=== PATIENT | male | born 1990 | race Native Hawaiian/Other Pacific Islander ===

== ENCOUNTER 2016-10-16 19:56 | Emergency (ER) | payer OTHER ==
--- NOTE | 2016-10-16 21:07 | ED ORDER SUMMARY ---
..... Patient: NIGEL DUBOIS OrderSheet [facility] VisitID: [id number] [address] [place] [address] 26y, M Registration Date/Time: 10/16/2016 ORDER SHEET Weight: 92.9 kg (stated) Allergies: No Known Drug Allergy GENERAL ORDERS: CBC w Diff Urgent (20:10/16/2016 EKoroleva P.A.-C) (Ack 20:13 LTapper) (20:21 HOShaughnessy R.N.) BMP Urgent (20:10/16/2016 EKoroleva P.A.-C) (Ack 20:13 LTapper) (20:21 HOShaughnessy R.N.) PCT (Procalcitonin) Urgent (20:10/16/2016 EKoroleva P.A.-C) (Ack 20:13 LTapper) (20:21 HOShaughnessy R.N.) Culture, Strep Screen Urgent (20:10/16/2016 EKoroleva P.A.-C) (Ack 20:13 LTapper) (20:21 HOShaughnessy R.N.) Monoscreen Urgent (20:10/16/2016 EKoroleva P.A.-C) (Ack 20:13 LTapper) (20:21 HOShaughnessy R.N.) NPO (20:10/16/2016 EKoroleva P.A.-C) (20:21 HOShaughnessy R.N.) MEDICATION ORDERS: Tylenol PO 1,000 mg (NOW) (20:10/16/2016 EKoroleva P.A.-C) (Ack 20:22 HOShaughnessy R.N.) (20:50 HOShaughnessy R.N.) Amoxicillin PO 500 mg (NOW) (21:10/16/2016 EKoroleva P.A.-C) (21:16 HOShaughnessy R.N.) IV FLUIDS: Solu-MEDROL IV 125 mg (NOW) (20:10/16/2016 EKoroleva P.A.-C) (20:21 Zenaida RizoN.) Toradol IV 30 mg (NOW) (20:07 10/16/2016 Shonda Bowie) (20:20 Zenaida Maloney.N.) IV NS : initial bolus 1000 mL (1000 mL/hr), then 1000 mL/hr for X1 (NOW); Viral (20:07 10/16/2016 Shonda Bowie) (20:20 Zenaida R.N.) ORDER SHEET NOTES: [Electronically signed by Molina Membreno R.N. (21:39 10/16/2016)] [Electronically signed by Chula Nascimento P.A.-C (21:44 10/16/2016)] [Electronically locked/signed by Molina Membreno R.N. (21:39 10/16/2016)]
--- NOTE | 2016-10-16 21:07 | ED NURSING NOTES ---
Clinical Report - Nurses [facility] [address] [place] [address] 10/16/2016 19:59 Patient: NIGEL DUBOIS TRIAGE Triage time 2004 PM. Acuity: LEVEL 4. Chief Complaint: SORE THROAT. Alert. No acute distress. --20:06 Molina Membreno R.N. 20:04 10/16/16. BP: 150/82 taken on the left arm, via an automated monitor, while lying. HR: 111. RR: 20. O2 saturation: 99%. Temp: 99.2 F (oral). Pain level now: 05/13. --20:06 Molina Membreno R.N. Weight: 92.9 kg stated. Height/Length: 66 inches Per Patient. BMI: 33.1. --20:06 Molina Membreno R.N. Medications None. --20:06 Molina Membreno R.N. Allergies No Known Drug Allergy. --20:05 Molina Membreno R.N. History Arrived by private vehicle. Historian: patient. Accompanied by family. This started today. This is a new problem. (12pm). Reports enlarged lymph nodes. Treatment [employer]OUNT[employer]ING [employer]IC: Took ibuprofen. PAST MEDICAL HX: Immunizations: up-to-date. SOCIAL HX: Former smoker, end date 06/2016. Alcohol use. (no). History of drug use. (no). --20:06 Molina Membreno R.N. PROBLEMS: Neck Pain. Back Injury. Chronic Back Pain. Back Pain. --20:06 Molina Membreno R.N. ADDITIONAL SURGERIES: Dental Surgery. --20:06 Molina Membreno R.N. Interventions ID band on patient. To treatment room. --20:06 Molina Membreno R.N. PHYSICAL ASSESSMENT Ambulatory to room. GENERAL / NEURO / PSYCH: Alert. Oriented X 4. Appears in no acute distress. HEENT: Pupils equal, round and reactive to light. Trouble handling secretions. Mouth within normal limits upon inspection. No dental injury noted. Mucous membranes are pink. RESPIRATORY: Respirations not labored. CVS: Capillary refill less than 2 seconds. SKIN: Skin is warm and dry. Normal skin turgor. --20:07 Molina Membreno R.N. NURSING PROGRESS NOTES Call light placed in reach. Side rails up x 2. Bed placed in lowest position. Brakes of bed on. --20:07 Molina Membreno R.N. 20:20 10/16/2016 Site #1 started via IV in the left antecubital space with an 18g angiocath; one attempt. Blood drawn: rainbow set. Labeled in the presence of the patient and sent to the lab. Saline lock flushed with 10 mL saline. --20:20 Molina Membreno R.N. 20:20 10/16/2016 Started IV Fluids IV NS (Saline); bolus of 1000 mL wide open via site #1. Allergies verified and confirmed 5 rights. IV patency established. IV site checked: no pain, redness, or swelling. IV flushed thoroughly pre- and post-medication administration. --20:20 Molina Membreno R.N. 20:20 10/16/2016 Toradol IVP 30 mg given over 2 minute(s) via site #1. Allergies verified and confirmed 5 rights. IV patency established. IV site checked: no pain, redness, or swelling. IV flushed thoroughly pre- and post-medication administration. IVP given by RN. --20:20 Molina Membreno R.N. 20:21 10/16/2016 SOLU-MEDROL (MethylPREDNISolone Sodium Succ) IVP 125 mg given over 2 minute(s) via site #1. Allergies verified and confirmed 5 rights. IV patency established. IV site checked: no pain, redness, or swelling. IV flushed thoroughly pre- and post-medication administration. IVP given by RN. --20:21 Molina Membreno R.N. 20:50 10/16/2016 Tylenol (Acetaminophen) PO Capsules 1000 mg given. Allergies verified and confirmed 5 rights. --20:50 Molina Membreno R.N. 20:50 10/16/16. BP: 119/71. HR: 95. RR: 16. O2 saturation: 99%. Temp: 98.9 F (oral). Pain level now: 02/10. --20:50 Molina Membreno R.N. 21:16 10/16/2016 Amoxicillin PO Capsules 500 mg given. Allergies verified and confirmed 5 rights. --21:16 Molina Membreno R.N. DISPOSITION / DISCHARGE 21:20 10/16/2016 IV Fluids IV NS Discontinued: bag #1 STOPPED. Total amount infused: 1000 mL. IV patency established. IV site checked: no pain, redness, or swelling. IV flushed thoroughly. --21:20 Molina Membreno R.N. 21:21 10/16/2016 Site #1 removed upon discharge. --21:21 Molina Membreno R.N. Condition at departure: improved. The goals identified in the patient's plan of care were met. Reviewed medication(s) side effects, precautions, dosing and course information. Prescription(s) given to the patient. Reviewed fever care instructions. Reviewed referral to a primary care physician. Patient verbalized understanding. Written instructions provided in Kinyarwanda. The patient was discharged home and unaccompanied at time of discharge. He left the Emergency Department ambulatory and via private vehicle. Patient driving. FALL RISK ASSESSMENT: Fall risk assessment completed. No fall risk identified. --21:22 Molina Membreno R.N. 21:20 10/16/16. BP: 114/85 taken on the right arm, via an automated monitor, while lying. HR: 106. RR: 16. O2 saturation: 98% on room air. Temp: 98.6 F (oral). Pain level now: 02/10. --21:22 Molina Membreno R.N. Departure time: 2121 PM. --21:22 Molina Membreno R.N. Locked/Released at 10/16/2016 21:40 by Molina Membreno R.N.
--- NOTE | 2016-10-16 21:07 | ED CLINICAL REPORT ---
Clinical Report - Physicians/Mid Levels [facility] [address] [place] [address] 10/16/2016 19:59 [id number] Time Seen: 20:08 Oct 16 2016. Arrived- By private vehicle. Historian- patient. HISTORY OF PRESENT ILLNESS Chief Complaint: SORE THROAT. This started just prior to arrival and is still present. The patient has had a sore throat. No mouth sores, nasal discharge or congestion or toothache. No swollen jaw or face. (Sore throat worsening over the last 12 hours. No fevers or chills no cough. No sick contacts. Noarthralgia. No rash. No new substances. No history of allergies.). Similar symptoms previously: None. Recent medical care: Not recently seen/assessed. REVIEW OF SYSTEMS No fever, cough, chest pain, nausea or abdominal pain. No headache. All systems otherwise negative, except as recorded above. SOCIAL HISTORY Former smoker. No alcohol use or drug use. ADDITIONAL NOTES The nursing notes have been reviewed. PHYSICAL EXAM Vital Signs: 10/16/2016 20:04 BP: 150/82. HR: 111. RR: 20. O2 saturation: 99%. Temp: 99.2 F. Pain level now: 9/10. Appearance: Alert. Head: Normal external inspection. ENT: Ears normal. Nose normal. Pharyngeal erythema. Pharynx normal. Lips normal. No trismus present. Uvula midline. No peritonsillar mass, muffled or hoarse voice or drooling. The mucous membranes are not dry. Neck: Lymphadenopathy present. Thyroid normal. No meningeal signs. CVS: Normal heart rate and rhythm. Heart sounds normal. Respiratory: No respiratory distress. Breath sounds normal. Abdomen: Soft. LABS, X-RAYS, AND EKG Laboratory Tests: Monoscreen: (CHARLOTTE: 10/16/2016 20:15) ( MsgRcvd 10/16/2016 20:57) Final results Test Result Flag Units (Reference) MONOSCREEN NEGATIVE (NEGATIVE) CBC w Diff: (CHARLOTTE: 10/16/2016 20:15) ( MsgRcvd 10/16/2016 20:45) Final results Test Result Flag Units (Reference) WHITE BLOOD COUNT 8.4 K/uL (4.5-11.5) RED BLOOD COUNT 4.95 M/uL (4.50-5.90) HEMOGLOBIN 15.7 gm/dL (13.5-17.5) HEMATOCRIT 46.1 % (41.0-53.0) MEAN CELL VOLUME 93 fL (80-100) MEAN CORPUSCULAR HGB 32 pg (26-34) MEAN CORPUSCULAR HGB CONC 34 g/dL (31-37) RED CELL DISTRIBUTION WIDTH 13.6 % (11.6-14.8) PLATELET COUNT 307 K/uL (150-400) NEUTROPHIL % 78.7 H % (50-75) LYMPH % 11.7 L % (25-40) MONO % 6.9 % (3-14) EOSINOPHIL % 2.4 % (0-4) BASOPHIL % 0.3 % (0-2) [id number]: (CHARLOTTE: 10/16/2016 20:15) ( MsgRcvd 10/16/2016 21:14) Final results Test Result Flag Units (Reference) PROCALCITONIN <0.5 ng/mL (0-0.5) PCT Concentration: Interpretation : Risk/option for action PCT <=0.5 ng/mL : Systemic : Low risk forinfection(sepsis): progression to severeis not likely. : systemic infection.Local bacterial : CAUTION-PCT levelsinfection is : below 0.5 ng/mL do notpossible. : exclude an infection,because localizedinfections (withoutsystemic signs) may beassociated with suchlow levels. If PCT ismeasured very earlyafter a bacterialchallenge (usually <6hours), these valuesmay still be low. Inthis case PCT shouldbe re-assessed 6-24hours later. PCT >0.5 and : Systemic infection: Moderate risk for<= 2 ng/mL : (sepsis) is : progression to severepossible, but : systemic infection.other conditions : The patient should beare known to : closely monitoredelevate PCT. : both clinically andby re-assessing PCTwithin 6-24 hours. PCT > 2 ng/mL : Systemic infection: High risk for(sepsis) is likely: progression to severeunless other : systemic infection.causes are known. : PCT >= 10 ng/mL : Important systemic: High likelihood ofinflammatory : severe sepsis orresponse, almost : septic shock.exclusively due to:severe bacterial :sepsis or septic :shock. : BMP: (CHARLOTTE: 10/16/2016 20:15) ( MsgRcvd 10/16/2016 20:39) Final results Test Result Flag Units (Reference) GLUCOSE 96 mg/dL (70-110) BUN 9 mg/dL (7-18) CREATININE 0.7 mg/dL (0.6-1.3) Estimated GFR >60 mL/min Estimated GFR- >60 mL/min Note: Persistent reduction over 3 months in eGFR<60 mL/min/1.73 m2 defines CKD. Patients with eGFR values>=60 mL/min/1.73 m2 may also have CKD if evidence ofpersistent proteinuria. Additional information may be foundat www.kidney.org. SODIUM 138 mmol/L (136-145) POTASSIUM 3.9 mmol/L (3.5-5.1) CHLORIDE 101 mmol/L (98-107) CARBON DIOXIDE 26 mmol/L (21-32) CALCIUM 9.2 mg/dL (8.5-10.1) Culture, Strep Screen: (CHARLOTTE: 10/16/2016 20:00) ( MsgRcvd 10/16/2016 20:57) Final results Test Result Flag Units (Reference) RAPID STREP SCREEN - THROAT DATE: 10/16/16 NEGATIVE SCREEN: RAPID STREP SCREEN NEGATIVE; CONFIRMATION TO FOLLOW . PROGRESS AND PROCEDURES Course of Care: Patient is afebrile, tachycardiac, with erythema and lymphadenopathy, at this time given acute symptoms we'll treat for strep pharyngitis. No signs of mass or abscess. Able to tolerate by mouth well. Patient is stable. Physical exam findings are improved. Symptoms better. Patient/family counseled. Differential Diagnosis: I considered pharyngitis, viral pharyngitis, tonsillitis, palatine tonsillitis, stomatitis, thrush and allergic stomatitis as a possible cause of sore throat in this patient. This is a partial list of diagnoses considered. Disposition: Discharged. CLINICAL IMPRESSION Acute pharyngitis INSTRUCTIONS Do not work today, tomorrow. Drink plenty of fluids. Prescription Medications: Tylenol with Codeine Tylenol #3 (30 mg / 300 mg) : take 1-2 tablets orally every 6 hours as needed for pain. Dispense fifteen (15). No refill. Substitution is permissible. Amoxicillin 500 mg capsules: take 1 orally every 8 hours for 10 days. No refills. Ibuprofen 800 mg tablets: take 1 tablet orally every 8 hours for 3 days, as needed for pain. Dispense ten (10). No refill. Follow-up: Follow up with your doctor in three days. (Electronically signed by Chula Nascimento P.A.-C 10/16/2016 21:44)
--- NOTE | 2016-10-16 21:07 | ED ORDER SUMMARY ---
..... Patient: NIGEL DUBOIS OrderSheet [facility] VisitID: [id number] [address] [place] [address] 26y, M Registration Date/Time: 10/16/2016 ORDER SHEET Weight: 92.9 kg (stated) Allergies: No Known Drug Allergy GENERAL ORDERS: CBC w Diff Urgent (20:10/16/2016 EKoroleva P.A.-C) (Ack 20:13 LTapper) (20:21 HOShaughnessy R.N.) BMP Urgent (20:10/16/2016 EKoroleva P.A.-C) (Ack 20:13 LTapper) (20:21 HOShaughnessy R.N.) PCT (Procalcitonin) Urgent (20:10/16/2016 EKoroleva P.A.-C) (Ack 20:13 LTapper) (20:21 HOShaughnessy R.N.) Culture, Strep Screen Urgent (20:10/16/2016 EKoroleva P.A.-C) (Ack 20:13 LTapper) (20:21 HOShaughnessy R.N.) Monoscreen Urgent (20:10/16/2016 EKoroleva P.A.-C) (Ack 20:13 LTapper) (20:21 HOShaughnessy R.N.) NPO (20:10/16/2016 EKoroleva P.A.-C) (20:21 HOShaughnessy R.N.) MEDICATION ORDERS: Tylenol PO 1,000 mg (NOW) (20:10/16/2016 EKoroleva P.A.-C) (Ack 20:22 HOShaughnessy R.N.) (20:50 HOShaughnessy R.N.) Amoxicillin PO 500 mg (NOW) (21:10/16/2016 EKoroleva P.A.-C) (21:16 HOShaughnessy R.N.) IV FLUIDS: Solu-MEDROL IV 125 mg (NOW) (20:10/16/2016 EKoroleva P.A.-C) (20:21 Zenaida RizoN.) Toradol IV 30 mg (NOW) (20:07 10/16/2016 Shonda Bowie) (20:20 Zenaida Maloney.N.) IV NS : initial bolus 1000 mL (1000 mL/hr), then 1000 mL/hr for X1 (NOW); Viral (20:07 10/16/2016 Shonda Bowie) (20:20 Zenaida R.N.) ORDER SHEET NOTES: [Electronically signed by Molina Membreno R.N. (21:39 10/16/2016)] [Electronically signed by Chula Nascimento P.A.-C (21:44 10/16/2016)] [Electronically locked/signed by Molina Membreno R.N. (21:39 10/16/2016)]
--- NOTE | 2016-10-16 21:44 | ED MAR SUMMARY ---
..... Medication Administration Record [facility] [address] [place] [address] Patient: NIGEL DUBOIS Visit ID: [id number] 26y, M Weight: 92.9 kg Height/Length: 66 in BMI: 33.1 ALLERGIES: No Known Drug Allergy Given 20:20 10/16/2016 Molina Membreno R.N. Medication Administered: TORADOL [IVP], Dose: 30 mg IVP over 2 minute(s), Site: #1 left AC. Medication Ordered: Toradol IV 30 mg (NOW). Start 20:20 10/16/2016 Molina Membreno R.N., Stop 21:20 10/16/2016 Molina Membreno R.N. Medication Administered: IV NS (SALINE), Dose: IV Fluids, Bolus: 1000 mL wide open, Site: #1 left AC. Medication Ordered: IV NS : initial bolus 1000 mL (1000 mL/hr), then 1000 mL/hr for X1 (NOW); Viral. Given 20:21 10/16/2016 Molina Membreno R.NEmeterio Medication Administered: SOLU-MEDROL [IVP] (METHYLPREDNISOLONE SODIUM SUCC), Dose: 125 mg IVP over 2 minute(s), Site: #1 left AC. Medication Ordered: Solu-MEDROL IV 125 mg (NOW). Given 20:50 10/16/2016 Molina Membreno R.N. Medication Administered: TYLENOL [PO] (ACETAMINOPHEN), Dose: 1000 mg Capsules PO. Medication Ordered: Tylenol PO 1,000 mg (NOW). Given 21:16 10/16/2016 Molina Membreno R.NEmeterio Medication Administered: AMOXICILLIN [PO], Dose: 500 mg Capsules PO. Medication Ordered: Amoxicillin PO 500 mg (NOW).
--- NOTE | 2016-10-16 21:44 | ED DISCHARGE INSTRUCTIONS ---
Patient: NIGEL DUBOIS General Instructions [facility] VisitID: [id number] [place] [address] 26y, M Registration Date/Time: 10/16/2016 Acute pharyngitis INSTRUCTIONS Do not work today, tomorrow. Drink plenty of fluids. Prescription Medications: Tylenol with Codeine Tylenol #3 (30 mg / 300 mg) : take 1-2 tablets orally every 6 hours as needed for pain. Dispense fifteen (15). No refill. Substitution is permissible. Amoxicillin 500 mg capsules: take 1 orally every 8 hours for 10 days. No refills. Ibuprofen 800 mg tablets: take 1 tablet orally every 8 hours for 3 days, as needed for pain. Dispense ten (10). No refill. Follow-up: Follow up with your doctor in three days. ADDITIONAL INFORMATION Pharyngitis: Strep [Presumed] Your illness has the signs of a strep throat infection. Strep throat is a contagious illness. It is spread by coughing, kissing or by touching others after touching your mouth or nose. Symptoms include throat pain worse with swallowing, aching all over, headache and fever. You will be treated with an antibiotic, which should make you start to feel better within 1-2 days. Home Care: Rest at home and drink plenty of fluids to avoid dehydration. No school or work for the first two days on antibiotics. You will not be contagious after this time, and if you are feeling better, you can return to school or work. Take your antibiotics for a full 10 days, even if you feel better after the first few days of treatment. This is very important to prevent complications from the strep infection (such as heart or kidney disease). Children: Use acetaminophen (Tylenol) for fever, fussiness or discomfort. In infants over six months of age, you may use ibuprofen (Children's Motrin) instead of Tylenol. [NOTE: If your child has chronic liver or kidney disease or ever had a stomach ulcer or GI bleeding, talk with your doctor before using these medicines.] (Aspirin should never be used in anyone under 18 years of age who is ill with a fever. It may cause severe liver damage.) Adults: You may use acetaminophen (Tylenol) or ibuprofen (Motrin, Advil) to control pain or fever, unless another medicine was prescribed for this. [NOTE: If you have chronic liver or kidney disease or ever had a stomach ulcer or GI bleeding, talk with your doctor before using these medicines.] Throat lozenges or sprays (Chloraseptic and others) will reduce pain. Gargling with warm salt water will also reduce throat pain. Dissolve 1/2 teaspoon of salt in 1 glass of warm water. This is especially useful just before meals. Follow Up with your doctor or as directed by our staff if you are not improving over the next week. Get Prompt Medical Attention if any of the following occur: Fever over 100.5F (38.0C) oral, or over 101.5F (38.6C) rectal for more than three days New or worsening ear pain, sinus pain or headache Painful lumps in the back of your neck Unable to swallow liquids or open your mouth wide due to throat pain Trouble breathing or noisy breathing Muffled voice New rash Amoxicillin Trihydrate Oral tablet What is this medicine? AMOXICILLIN (a mox i JUWAN in) is a penicillin antibiotic. It is used to treat certain kinds of bacterial infections. It will not work for colds, flu, or other viral infections. How should I use this medicine? Take this medicine by mouth with a glass of water. Follow the directions on your prescription label. You may take this medicine with food or on an empty stomach. Take your medicine at regular intervals. Do not take your medicine more often than directed. Take all of your medicine as directed even if you think your are better. Do not skip doses or stop your medicine early. Talk to your rivet maker regarding the use of this medicine in children. While this drug may be prescribed for selected conditions, precautions do apply. What side effects may I notice from receiving this medicine? Side effects that you should report to your doctor or health child care director as soon as possible: allergic reactions like skin rash, itching or hives, swelling of the face, lips, or tongue breathing problems dark urine redness, blistering, peeling or loosening of the skin, including inside the mouth seizures severe or watery diarrhea trouble passing urine or change in the amount of urine unusual bleeding or bruising unusually weak or tired yellowing of the eyes or skin Side effects that usually do not require medical attention (report to your doctor or health child care director if they continue or are bothersome): dizziness headache stomach upset trouble sleeping What may interact with this medicine? amiloride control pills chloramphenicol macrolides probenecid sulfonamides tetracyclines What if I miss a dose? If you miss a dose, take it as soon as you can. If it is almost time for your next dose, take only that dose. Do not take double or extra doses. Where should I keep my medicine? Keep out of the reach of children. Store between 68 and 77 degrees F (20 and 25 degrees C). Keep bottle closed tightly. Throw away any unused medicine after the expiration date. What should I tell my health care provider before I take this medicine? They need to know if you have any of these conditions: asthma kidney disease an unusual or allergic reaction to amoxicillin, other penicillins, cephalosporin antibiotics, other medicines, foods, dyes, or preservatives or trying to get breast-feeding What should I watch for while using this medicine? Tell your doctor or health child care director if your symptoms do not improve in 2 or 3 days. Take all of the doses of your medicine as directed. Do not skip doses or stop your medicine early. If you are diabetic, you may get a false positive result for sugar in your urine with certain brands of urine tests. Check with your doctor. Do not treat diarrhea with [id number] products. Contact your doctor if you have diarrhea that lasts more than 2 days or if the diarrhea is severe and watery. You have been given the following additional information: Pharyngitis, Strep (Presumed) Amoxicillin Trihydrate Oral tablet Do not work today, tomorrow. (Electronically signed by Chula Nascimento P.A.-C 10/16/2016 21:44)
--- NOTE | 2016-10-16 21:44 | ED MED RECONCILIATION SUMMARY ---
Patient: NIGEL DUBOIS Medication Reconciliation Report [facility] VisitID: [id number] [address] [place] [address] 26y, M Registration Date/Time: 10/16/2016 Weight: 92.9 kg Height/Length: 66 in. BMI: 33.1 ALLERGIES: No Known Drug Allergy The patient's Home Medications are listed below: NONE. The source(s) of the original Home Medication information: Not obtained. The following Medications were given to the patient in the Emergency Department: IV NS IV Fluids bolus 1000 mL wide open, administered: 10/16/2016 8:20:00 PM Toradol [IVP] IVP 30 mg, administered: 10/16/2016 8:20:00 PM SOLU-MEDROL [IVP] IVP 125 mg, administered: 10/16/2016 8:21:00 PM Tylenol [PO] PO 1000 mg, administered: 10/16/2016 8:50:00 PM Amoxicillin [PO] PO 500 mg, administered: 10/16/2016 9:16:00 PM The following Medications were prescribed to the patient: Tylenol with Codeine Tylenol #3 (30 mg / 300 mg) : take 1-2 tablets orally every 6 hours as needed for pain. Dispense fifteen (15). No refill. Substitution is permissible. -- Chula Nascimento, P.A.-C Amoxicillin 500 mg capsules: take 1 orally every 8 hours for 10 days. No refills. -- Chula Nascimento, P.A.-C Ibuprofen 800 mg tablets: take 1 tablet orally every 8 hours for 3 days, as needed for pain. Dispense ten (10). No refill. -- Chula Nascimento, P.A.-C
--- NOTE | 2016-10-16 21:44 | ED DISCHARGE INSTRUCTIONS ---
Patient: NIGEL DUBOIS General Instructions [facility] VisitID: [id number] [place] [address] 26y, M Registration Date/Time: 10/16/2016 Acute pharyngitis INSTRUCTIONS Do not work today, tomorrow. Drink plenty of fluids. Prescription Medications: Tylenol with Codeine Tylenol #3 (30 mg / 300 mg) : take 1-2 tablets orally every 6 hours as needed for pain. Dispense fifteen (15). No refill. Substitution is permissible. Amoxicillin 500 mg capsules: take 1 orally every 8 hours for 10 days. No refills. Ibuprofen 800 mg tablets: take 1 tablet orally every 8 hours for 3 days, as needed for pain. Dispense ten (10). No refill. Follow-up: Follow up with your doctor in three days. ADDITIONAL INFORMATION Pharyngitis: Strep [Presumed] Your illness has the signs of a strep throat infection. Strep throat is a contagious illness. It is spread by coughing, kissing or by touching others after touching your mouth or nose. Symptoms include throat pain worse with swallowing, aching all over, headache and fever. You will be treated with an antibiotic, which should make you start to feel better within 1-2 days. Home Care: Rest at home and drink plenty of fluids to avoid dehydration. No school or work for the first two days on antibiotics. You will not be contagious after this time, and if you are feeling better, you can return to school or work. Take your antibiotics for a full 10 days, even if you feel better after the first few days of treatment. This is very important to prevent complications from the strep infection (such as heart or kidney disease). Children: Use acetaminophen (Tylenol) for fever, fussiness or discomfort. In infants over six months of age, you may use ibuprofen (Children's Motrin) instead of Tylenol. [NOTE: If your child has chronic liver or kidney disease or ever had a stomach ulcer or GI bleeding, talk with your doctor before using these medicines.] (Aspirin should never be used in anyone under 18 years of age who is ill with a fever. It may cause severe liver damage.) Adults: You may use acetaminophen (Tylenol) or ibuprofen (Motrin, Advil) to control pain or fever, unless another medicine was prescribed for this. [NOTE: If you have chronic liver or kidney disease or ever had a stomach ulcer or GI bleeding, talk with your doctor before using these medicines.] Throat lozenges or sprays (Chloraseptic and others) will reduce pain. Gargling with warm salt water will also reduce throat pain. Dissolve 1/2 teaspoon of salt in 1 glass of warm water. This is especially useful just before meals. Follow Up with your doctor or as directed by our staff if you are not improving over the next week. Get Prompt Medical Attention if any of the following occur: Fever over 100.5F (38.0C) oral, or over 101.5F (38.6C) rectal for more than three days New or worsening ear pain, sinus pain or headache Painful lumps in the back of your neck Unable to swallow liquids or open your mouth wide due to throat pain Trouble breathing or noisy breathing Muffled voice New rash Amoxicillin Trihydrate Oral tablet What is this medicine? AMOXICILLIN (a mox i JUWAN in) is a penicillin antibiotic. It is used to treat certain kinds of bacterial infections. It will not work for colds, flu, or other viral infections. How should I use this medicine? Take this medicine by mouth with a glass of water. Follow the directions on your prescription label. You may take this medicine with food or on an empty stomach. Take your medicine at regular intervals. Do not take your medicine more often than directed. Take all of your medicine as directed even if you think your are better. Do not skip doses or stop your medicine early. Talk to your tray drier operator regarding the use of this medicine in children. While this drug may be prescribed for selected conditions, precautions do apply. What side effects may I notice from receiving this medicine? Side effects that you should report to your doctor or health care management specialist as soon as possible: allergic reactions like skin rash, itching or hives, swelling of the face, lips, or tongue breathing problems dark urine redness, blistering, peeling or loosening of the skin, including inside the mouth seizures severe or watery diarrhea trouble passing urine or change in the amount of urine unusual bleeding or bruising unusually weak or tired yellowing of the eyes or skin Side effects that usually do not require medical attention (report to your doctor or health care management specialist if they continue or are bothersome): dizziness headache stomach upset trouble sleeping What may interact with this medicine? amiloride control pills chloramphenicol macrolides probenecid sulfonamides tetracyclines What if I miss a dose? If you miss a dose, take it as soon as you can. If it is almost time for your next dose, take only that dose. Do not take double or extra doses. Where should I keep my medicine? Keep out of the reach of children. Store between 68 and 77 degrees F (20 and 25 degrees C). Keep bottle closed tightly. Throw away any unused medicine after the expiration date. What should I tell my health care provider before I take this medicine? They need to know if you have any of these conditions: asthma kidney disease an unusual or allergic reaction to amoxicillin, other penicillins, cephalosporin antibiotics, other medicines, foods, dyes, or preservatives or trying to get breast-feeding What should I watch for while using this medicine? Tell your doctor or health care management specialist if your symptoms do not improve in 2 or 3 days. Take all of the doses of your medicine as directed. Do not skip doses or stop your medicine early. If you are diabetic, you may get a false positive result for sugar in your urine with certain brands of urine tests. Check with your doctor. Do not treat diarrhea with [id number] products. Contact your doctor if you have diarrhea that lasts more than 2 days or if the diarrhea is severe and watery. You have been given the following additional information: Pharyngitis, Strep (Presumed) Amoxicillin Trihydrate Oral tablet Do not work today, tomorrow. (Electronically signed by Chula Nascimento P.A.-C 10/16/2016 21:44)
--- NOTE | 2016-10-16 21:44 | ED MAR SUMMARY ---
..... Medication Administration Record [facility] [address] [place] [address] Patient: NIGEL DUBOIS Visit ID: [id number] 26y, M Weight: 92.9 kg Height/Length: 66 in BMI: 33.1 ALLERGIES: No Known Drug Allergy Given 20:20 10/16/2016 Molina Membreno R.N. Medication Administered: TORADOL [IVP], Dose: 30 mg IVP over 2 minute(s), Site: #1 left AC. Medication Ordered: Toradol IV 30 mg (NOW). Start 20:20 10/16/2016 Molina Membreno R.N., Stop 21:20 10/16/2016 Molina Membreno R.N. Medication Administered: IV NS (SALINE), Dose: IV Fluids, Bolus: 1000 mL wide open, Site: #1 left AC. Medication Ordered: IV NS : initial bolus 1000 mL (1000 mL/hr), then 1000 mL/hr for X1 (NOW); Viral. Given 20:21 10/16/2016 Molina Membreno R.NEmeterio Medication Administered: SOLU-MEDROL [IVP] (METHYLPREDNISOLONE SODIUM SUCC), Dose: 125 mg IVP over 2 minute(s), Site: #1 left AC. Medication Ordered: Solu-MEDROL IV 125 mg (NOW). Given 20:50 10/16/2016 Molina Membreno R.N. Medication Administered: TYLENOL [PO] (ACETAMINOPHEN), Dose: 1000 mg Capsules PO. Medication Ordered: Tylenol PO 1,000 mg (NOW). Given 21:16 10/16/2016 Molina Membreno R.NEmeterio Medication Administered: AMOXICILLIN [PO], Dose: 500 mg Capsules PO. Medication Ordered: Amoxicillin PO 500 mg (NOW).
--- NOTE | 2016-10-16 21:44 | ED MED RECONCILIATION SUMMARY ---
Patient: NIGEL DUBOIS Medication Reconciliation Report [facility] VisitID: [id number] [address] [place] [address] 26y, M Registration Date/Time: 10/16/2016 Weight: 92.9 kg Height/Length: 66 in. BMI: 33.1 ALLERGIES: No Known Drug Allergy The patient's Home Medications are listed below: NONE. The source(s) of the original Home Medication information: Not obtained. The following Medications were given to the patient in the Emergency Department: IV NS IV Fluids bolus 1000 mL wide open, administered: 10/16/2016 8:20:00 PM Toradol [IVP] IVP 30 mg, administered: 10/16/2016 8:20:00 PM SOLU-MEDROL [IVP] IVP 125 mg, administered: 10/16/2016 8:21:00 PM Tylenol [PO] PO 1000 mg, administered: 10/16/2016 8:50:00 PM Amoxicillin [PO] PO 500 mg, administered: 10/16/2016 9:16:00 PM The following Medications were prescribed to the patient: Tylenol with Codeine Tylenol #3 (30 mg / 300 mg) : take 1-2 tablets orally every 6 hours as needed for pain. Dispense fifteen (15). No refill. Substitution is permissible. -- Chula Nascimento, P.A.-C Amoxicillin 500 mg capsules: take 1 orally every 8 hours for 10 days. No refills. -- Chula Nascimento, P.A.-C Ibuprofen 800 mg tablets: take 1 tablet orally every 8 hours for 3 days, as needed for pain. Dispense ten (10). No refill. -- Chula Nascimento, P.A.-C
== END 2016-10-16 21:23 | disposition home or self-care (01) ==
LOC: ED SRH 19:56
DX: J02.9 Acute pharyngitis, unspecified (principal); R00.0 Tachycardia, unspecified; L53.9 Erythematous condition, unspecified; R59.1 Generalized enlarged lymph nodes; Z87.891 Personal history of nicotine dependence
CPT/HCPCS: 90047; 90154; 90159; 90627; 93004; 95059; 98370

== ENCOUNTER 2017-02-15 17:49 | Emergency (ER) | payer OTHER ==
--- NOTE | 2017-02-15 18:46 | DIAGNOSTIC IMAGING REPORT ---
PROCEDURE: CT HEAD WITHOUT CONTRAST INDICATION: TRAUMA/INJURY TECHNIQUE: Noncontrast axial images with sagittal and coronal reformations. COMPARISON: None. FINDINGS: Brain and ventricles are normal. No evidence of an acute process or hemorrhage. Sinuses and mastoids are normal. IMPRESSION: 1. Negative head CT. 2. Findings discussed with Dr. Tone Younger at [address] scans at this facility use dose modulation, iterative reconstruction, and/or weight-based dosing when appropriate to reduce radiation dose to as low as reasonably achievable.
--- NOTE | 2017-02-15 19:46 | ED ORDER SUMMARY ---
..... Patient: NIGEL DUBOIS OrderSheet [facility] VisitID: [id number] [address] [place] [address] 26y, M Registration Date/Time: 02/15/2017 ORDER SHEET Weight: 113.3 kg (stated) Allergies: No Known Drug Allergy GENERAL ORDERS: CT Head wo Cont (head trauma after seizure 2 days ago) Urgent (18:32 02/15/2017 Zbigniew Gonzalez) (Ack 18:32 Louis) (18:40 Louis) MEDICATION ORDERS: Toradol IM 60 mg (NOW) (18:53 02/15/2017 Zbigniew Gonzalez) (Ack 18:57 DDean R.N.) (19:05 DDean R.N.) IV FLUIDS: ORDER SHEET NOTES: [Electronically signed by Radha Lee R.N. (19:57 02/15/2017)] [Electronically signed by Tone Younger Dr. (23:30 02/16/2017)] [Electronically locked/signed by Radha Lee R.N. (19:57 02/15/2017)]
--- NOTE | 2017-02-15 19:46 | ED ORDER SUMMARY ---
..... Patient: NIGEL DUBOIS OrderSheet [facility] VisitID: [id number] [address] [place] [address] 26y, M Registration Date/Time: 02/15/2017 ORDER SHEET Weight: 113.3 kg (stated) Allergies: No Known Drug Allergy GENERAL ORDERS: CT Head wo Cont (head trauma after seizure 2 days ago) Urgent (18:32 02/15/2017 Zbigniew Gonzalez) (Ack 18:32 Louis) (18:40 Louis) MEDICATION ORDERS: Toradol IM 60 mg (NOW) (18:53 02/15/2017 Zbigniew Gonzalez) (Ack 18:57 DDean R.N.) (19:05 DDean R.N.) IV FLUIDS: ORDER SHEET NOTES: [Electronically signed by Radha Lee R.N. (19:57 02/15/2017)] [Electronically signed by Tone Younger Dr. (23:30 02/16/2017)] [Electronically locked/signed by Radha Lee R.N. (19:57 02/15/2017)]
--- NOTE | 2017-02-15 19:46 | ED CLINICAL REPORT ---
Clinical Report - Physicians/Mid Levels [facility] [address] [place] [address] 02/15/2017 17:50 Patient: NIGEL DUBOIS Time Seen: 18:07; initial patient contact. Arrived- By private vehicle. Historian- patient. HISTORY OF PRESENT ILLNESS Is still present. Chief Complaint: HEADACHE. This started about 2 days ago. Onset during after a "seizure" 2 days ago he struck his head. It is described as "pain". Located in the left hemicranial and left parietal region. No neck pain. Not located in the facial region. At its maximum, severity described as moderate. When seen in the E.D., severity described as moderate. Modifying factors: relieved by nothing. Not worsened by anything. No preceding symptoms, blurred vision, associated nausea or vomiting. Similar symptoms previously: None. Recent medical care: Not recently seen/assessed. REVIEW OF SYSTEMS No fever, muscle aches or sinus pressure. He sustained a head injury. All systems otherwise negative, except as recorded above. PAST HISTORY Pharyngitis. Neck Pain. Back Injury. Chronic Back Pain. Back Pain. SURGERIES: Dental Surgery. SOCIAL HISTORY Current every day smoker. History of drug use: marijuana. ADDITIONAL NOTES The nursing notes have been reviewed. PHYSICAL EXAM Vital Signs: 02/15/2017 17:59 BP: 143/76. HR: 85. RR: 18. O2 saturation: 98%. Temp: 98.1 F. Pain level now: 7/10. Have been reviewed. Hypertensive. Heart rate normal. Respiratory rate normal. Temperature normal. Oxygen saturation normal. Appearance: Alert. No acute distress. Eyes: Pupils equal, round and reactive to light and light. Eyes normal inspection. EOMs intact. No photophobia. ENT: Pharynx normal. Neck: Normal inspection. Neck supple. Neuro: Oriented X 3. Alert. Mood/affect normal. Cranial nerves normal (as tested). No cerebellar findings. No motor deficit. No sensory deficit. Reflexes normal. LABS, X-RAYS, AND EKG CT Head: Normal study. No acute changes. No bony abnormalities, no hemorrhage, no intracranial mass, no midline shift and no hydrocephalus. No atrophy. Head CT performed without contrast. The study was interpreted by the radiologist and discussed with the radiologist. PROGRESS AND PROCEDURES Disposition: Discharged home in good and improved condition. Condition: good. CLINICAL IMPRESSION Single contusion with soft tissue hematoma to the head. INSTRUCTIONS Prescription Medications: Diclofenac 50 mg tablets: take 1 tablet orally every 8 hours as needed for pain or stiffness. Dispense thirty (30). No refill. Follow-up: Follow up with your doctor in about four days. Call for an appointment. Screening today revealed the patient's blood pressure to be in the hypertensive range. The patient should follow up with a primary care provider for blood pressure management. (Electronically signed by Tone Younger Dr. 02/16/2017 23:30)
--- NOTE | 2017-02-15 19:46 | ED CLINICAL REPORT ---
Clinical Report - Physicians/Mid Levels [facility] [address] [place] [address] 02/15/2017 17:50 Patient: NIGEL DUBOIS Time Seen: 18:07; initial patient contact. Arrived- By private vehicle. Historian- patient. HISTORY OF PRESENT ILLNESS Is still present. Chief Complaint: HEADACHE. This started about 2 days ago. Onset during after a "seizure" 2 days ago he struck his head. It is described as "pain". Located in the left hemicranial and left parietal region. No neck pain. Not located in the facial region. At its maximum, severity described as moderate. When seen in the E.D., severity described as moderate. Modifying factors: relieved by nothing. Not worsened by anything. No preceding symptoms, blurred vision, associated nausea or vomiting. Similar symptoms previously: None. Recent medical care: Not recently seen/assessed. REVIEW OF SYSTEMS No fever, muscle aches or sinus pressure. He sustained a head injury. All systems otherwise negative, except as recorded above. PAST HISTORY Pharyngitis. Neck Pain. Back Injury. Chronic Back Pain. Back Pain. SURGERIES: Dental Surgery. SOCIAL HISTORY Current every day smoker. History of drug use: marijuana. ADDITIONAL NOTES The nursing notes have been reviewed. PHYSICAL EXAM Vital Signs: 02/15/2017 17:59 BP: 143/76. HR: 85. RR: 18. O2 saturation: 98%. Temp: 98.1 F. Pain level now: 7/10. Have been reviewed. Hypertensive. Heart rate normal. Respiratory rate normal. Temperature normal. Oxygen saturation normal. Appearance: Alert. No acute distress. Eyes: Pupils equal, round and reactive to light and light. Eyes normal inspection. EOMs intact. No photophobia. ENT: Pharynx normal. Neck: Normal inspection. Neck supple. Neuro: Oriented X 3. Alert. Mood/affect normal. Cranial nerves normal (as tested). No cerebellar findings. No motor deficit. No sensory deficit. Reflexes normal. LABS, X-RAYS, AND EKG CT Head: Normal study. No acute changes. No bony abnormalities, no hemorrhage, no intracranial mass, no midline shift and no hydrocephalus. No atrophy. Head CT performed without contrast. The study was interpreted by the radiologist and discussed with the radiologist. PROGRESS AND PROCEDURES Disposition: Discharged home in good and improved condition. Condition: good. CLINICAL IMPRESSION Single contusion with soft tissue hematoma to the head. INSTRUCTIONS Prescription Medications: Diclofenac 50 mg tablets: take 1 tablet orally every 8 hours as needed for pain or stiffness. Dispense thirty (30). No refill. Follow-up: Follow up with your doctor in about four days. Call for an appointment. Screening today revealed the patient's blood pressure to be in the hypertensive range. The patient should follow up with a primary care provider for blood pressure management. (Electronically signed by Tone Younger Dr. 02/16/2017 23:30)
--- NOTE | 2017-02-15 19:46 | ED NURSING NOTES ---
Clinical Report - Nurses [facility] [address] [place] [address] 02/15/2017 17:50 Patient: NIGEL DUBOIS TRIAGE Triage time 1755. Acuity: LEVEL 4. Chief Complaint: HEADACHE and (pt in for bump on back of head and a headache. Pt has had 2 seizures since 01/04/17. was worked up at [facility] with Neg results.). SERENA COMA SCORE: Serena Coma Scale: 15- eyes open spontaneously (4); best verbal response- oriented x 4 (5); best motor response- obeys commands (6). --18:03 Radha Lee R.N. 17:59 02/15/17. BP: 143/76. HR: 85. RR: 18. O2 saturation: 98% on room air. Temp: 98.1 F. Pain level now: 03/12. --18:03 Radha Lee R.N. Weight: 113.3 kg stated. Height/Length: 66.5 inches Per Patient. BMI: 39.7. --18:02 Radha Lee R.N. Medications None. --19:57 Radha Lee R.N. Allergies No Known Drug Allergy. --19:57 Radha Lee R.N. History Arrived by private vehicle. Historian: patient. Unaccompanied. Onset. (02/13 seizure, hit head). SOCIAL HX: Light tobacco smoker (cigarette)- less than 1/2 a pack per day. History of drug use: marijuana. No alcohol use. --18:03 Radha Lee R.N. PROBLEMS: Pharyngitis. Neck Pain. Back Injury. Chronic Back Pain. Back Pain. --18:00 Radha Lee R.N. ADDITIONAL SURGERIES: Dental Surgery. --18:00 Radha Lee R.N. Interventions ID band on patient. To treatment room. --18:03 Radha Lee R.N. PHYSICAL ASSESSMENT 17:55. Ambulatory to room. Patient gowned. GENERAL / NEURO / PSYCH: Alert. Oriented X 4. Appears anxious. Speech within normal limits. ( bump to back of had). HEENT: No facial asymmetry noted. RESPIRATORY: Respirations not labored. GI / : Abdomen soft. SKIN: Skin is warm and dry. --18:04 Radha Lee R.N. NURSING PROGRESS NOTES 17:55. Cold pack applied. Patient gowned. Head of bed elevated. Reassurance given. Patient identifiers checked. Call light placed in reach. Side rails up. Bed placed in lowest position. Patient ready for evaluation- chart flagged. --18:03 Radha Lee R.N. 18:25. Patient transported to [place] by stretcher with tech. --18:36 Radha Lee R.N. 18:35. Patient walked back to ED from CT with tech. --18:46 Radha Lee R.N. 19:00 02/15/2017 Toradol (Ketorolac Tromethamine) IM 60 mg given. Given in the right ventral gluteus. --19:05 Radha Lee R.N. 19:00 pt given meds, resting quietly. --19:56 Radha Lee R.N. 19:20. Reassessment after medication administered. He is calm. Overall patient status is the same- he states feels the same. --19:56 Radha Lee R.N. DISPOSITION / DISCHARGE 19:50. Condition at departure: unchanged and stable. No learning barriers present. Discharge instructions provided and reviewed with the patient. Reviewed warnings (head inj precautions). Reviewed medication(s) (diclofenec). Treatments reviewed (ice, rest). Patient verbalized understanding. Written instructions provided in Beninese. The patient was discharged home and unaccompanied at time of discharge. He left the Emergency Department ambulatory and via private vehicle. Patient driving. SERENA COMA SCORE: Serena Coma Scale: 15- eyes open spontaneously (4); best verbal response- oriented x 4 (5); best motor response- obeys commands (6). --19:55 Radha Lee R.N. 19:50 02/15/17. BP: 136/78. HR: 79. RR: 18. O2 saturation: 100%. Temp: deferred. Pain level now: 02/10. --19:55 Radha Lee R.N. Locked/Released at 02/15/2017 19:57 by Radha Lee R.N.
--- NOTE | 2017-02-15 19:46 | ED NURSING NOTES ---
Clinical Report - Nurses [facility] [address] [place] [address] 02/15/2017 17:50 Patient: NIGEL DUBOIS TRIAGE Triage time 1755. Acuity: LEVEL 4. Chief Complaint: HEADACHE and (pt in for bump on back of head and a headache. Pt has had 2 seizures since 01/04/17. was worked up at [facility] with Neg results.). SERENA COMA SCORE: Serena Coma Scale: 15- eyes open spontaneously (4); best verbal response- oriented x 4 (5); best motor response- obeys commands (6). --18:03 Radha Lee R.N. 17:59 02/15/17. BP: 143/76. HR: 85. RR: 18. O2 saturation: 98% on room air. Temp: 98.1 F. Pain level now: 03/12. --18:03 Radha Lee R.N. Weight: 113.3 kg stated. Height/Length: 66.5 inches Per Patient. BMI: 39.7. --18:02 Radha Lee R.N. Medications None. --19:57 Radha Lee R.N. Allergies No Known Drug Allergy. --19:57 Radha Lee R.N. History Arrived by private vehicle. Historian: patient. Unaccompanied. Onset. (02/13 seizure, hit head). SOCIAL HX: Light tobacco smoker (cigarette)- less than 1/2 a pack per day. History of drug use: marijuana. No alcohol use. --18:03 Radha Lee R.N. PROBLEMS: Pharyngitis. Neck Pain. Back Injury. Chronic Back Pain. Back Pain. --18:00 Radha Lee R.N. ADDITIONAL SURGERIES: Dental Surgery. --18:00 Radha Lee R.N. Interventions ID band on patient. To treatment room. --18:03 Radha Lee R.N. PHYSICAL ASSESSMENT 17:55. Ambulatory to room. Patient gowned. GENERAL / NEURO / PSYCH: Alert. Oriented X 4. Appears anxious. Speech within normal limits. ( bump to back of had). HEENT: No facial asymmetry noted. RESPIRATORY: Respirations not labored. GI / : Abdomen soft. SKIN: Skin is warm and dry. --18:04 Radha Lee R.N. NURSING PROGRESS NOTES 17:55. Cold pack applied. Patient gowned. Head of bed elevated. Reassurance given. Patient identifiers checked. Call light placed in reach. Side rails up. Bed placed in lowest position. Patient ready for evaluation- chart flagged. --18:03 Radha Lee R.N. 18:25. Patient transported to [place] by stretcher with tech. --18:36 Radha Lee R.N. 18:35. Patient walked back to ED from CT with tech. --18:46 Radha Lee R.N. 19:00 02/15/2017 Toradol (Ketorolac Tromethamine) IM 60 mg given. Given in the right ventral gluteus. --19:05 Radha Lee R.N. 19:00 pt given meds, resting quietly. --19:56 Radha Lee R.N. 19:20. Reassessment after medication administered. He is calm. Overall patient status is the same- he states feels the same. --19:56 Radha Lee R.N. DISPOSITION / DISCHARGE 19:50. Condition at departure: unchanged and stable. No learning barriers present. Discharge instructions provided and reviewed with the patient. Reviewed warnings (head inj precautions). Reviewed medication(s) (diclofenec). Treatments reviewed (ice, rest). Patient verbalized understanding. Written instructions provided in [place]. The patient was discharged home and unaccompanied at time of discharge. He left the Emergency Department ambulatory and via private vehicle. Patient driving. SERENA COMA SCORE: Serena Coma Scale: 15- eyes open spontaneously (4); best verbal response- oriented x 4 (5); best motor response- obeys commands (6). --19:55 Radha Lee R.N. 19:50 02/15/17. BP: 136/78. HR: 79. RR: 18. O2 saturation: 100%. Temp: deferred. Pain level now: 02/10. --19:55 Radha Lee R.N. Locked/Released at 02/15/2017 19:57 by Radha Lee R.N.
--- NOTE | 2017-02-16 23:31 | ED MED RECONCILIATION SUMMARY ---
Patient: NIGEL DUBOIS Medication Reconciliation Report [facility] VisitID: [id number] [address] [place] [address] 26y, M Registration Date/Time: 02/15/2017 Weight: 113.3 kg Height/Length: (not available) BMI: 39.7 ALLERGIES: No Known Drug Allergy The patient's Home Medications are listed below: NONE. The source(s) of the original Home Medication information: Not obtained. The following Medications were given to the patient in the Emergency Department: Toradol [IM] IM 60 mg, administered: 02/15/2017 7:00:00 PM The following Medications were prescribed to the patient: Diclofenac 50 mg tablets: take 1 tablet orally every 8 hours as needed for pain or stiffness. Dispense thirty (30). No refill. -- Tone Younger Dr.
--- NOTE | 2017-02-16 23:31 | ED MAR SUMMARY ---
..... Medication Administration Record [facility] [address] [place] [address] Patient: NIGEL DUBOIS Visit ID: [id number] 26y, M Weight: 113.3 kg Height/Length: 66.5 in BMI: 39.7 ALLERGIES: No Known Drug Allergy Given 19:00 02/15/2017 Jesus, Radha RLorrie. Medication Administered: TORADOL [IM] (KETOROLAC TROMETHAMINE), Dose: 60 mg IM. Medication Ordered: Toradol IM 60 mg (NOW).
--- NOTE | 2017-02-16 23:31 | ED MAR SUMMARY ---
..... Medication Administration Record [facility] [address] [place] [address] Patient: NIGEL DUBOIS Visit ID: [id number] 26y, M Weight: 113.3 kg Height/Length: 66.5 in BMI: 39.7 ALLERGIES: No Known Drug Allergy Given 19:00 02/15/2017 Jesus, Radha RLorrie. Medication Administered: TORADOL [IM] (KETOROLAC TROMETHAMINE), Dose: 60 mg IM. Medication Ordered: Toradol IM 60 mg (NOW).
--- NOTE | 2017-02-16 23:31 | ED DISCHARGE INSTRUCTIONS ---
Patient: NIGEL DUBOIS General Instructions [facility] VisitID: [id number] [place] [address] 26y, M Registration Date/Time: 02/15/2017 Single contusion with soft tissue hematoma to the head. INSTRUCTIONS Prescription Medications: Diclofenac 50 mg tablets: take 1 tablet orally every 8 hours as needed for pain or stiffness. Dispense thirty (30). No refill. Follow-up: Follow up with your doctor in about four days. Call for an appointment. Screening today revealed the patient's blood pressure to be in the hypertensive range. The patient should follow up with a primary care provider for blood pressure management. ADDITIONAL INFORMATION Contusion,Soft Tissue You have a CONTUSION, which is a bruise with swelling and some bleeding under the skin. There are no broken bones. This injury takes a few days to a few weeks to heal. Home Care: 1) Keep the injured part elevated to reduce pain and swelling. This is especially important during the first 48 hours. 2) Make an ice pack (ice cubes in a plastic bag, wrapped in a towel) and apply for 20 minutes every 1-2 hours the first day. Continue this 3-4 times a day until the pain and swelling goes away. 3) You may use acetaminophen (Tylenol) or ibuprofen (Motrin, Advil) to control pain, unless another pain medicine was prescribed. [ NOTE : If you have chronic liver or kidney disease or ever had a stomach ulcer or GI bleeding, talk with your doctor before using these medicines.] Follow Up with your doctor or this facility if you are not improving within the next THREE days. [NOTE: If X-rays were taken, they will be reviewed by a radiologist. You will be notified of any new findings that may affect your care.] Get Prompt Medical Attention if any of the following occur: -- Pain or swelling increases -- Injured arm or leg becomes cold, blue, numb or tingly -- Redness, warmth or drainage from the skin You have been given the following additional information: Contusion, Soft Tissue (Electronically signed by Tone Younger Dr. 02/16/2017 23:30)
--- NOTE | 2017-02-16 23:31 | ED DISCHARGE INSTRUCTIONS ---
Patient: NIGEL DUBOIS General Instructions [facility] VisitID: [id number] [place] [address] 26y, M Registration Date/Time: 02/15/2017 Single contusion with soft tissue hematoma to the head. INSTRUCTIONS Prescription Medications: Diclofenac 50 mg tablets: take 1 tablet orally every 8 hours as needed for pain or stiffness. Dispense thirty (30). No refill. Follow-up: Follow up with your doctor in about four days. Call for an appointment. Screening today revealed the patient's blood pressure to be in the hypertensive range. The patient should follow up with a primary care provider for blood pressure management. ADDITIONAL INFORMATION Contusion,Soft Tissue You have a CONTUSION, which is a bruise with swelling and some bleeding under the skin. There are no broken bones. This injury takes a few days to a few weeks to heal. Home Care: 1) Keep the injured part elevated to reduce pain and swelling. This is especially important during the first 48 hours. 2) Make an ice pack (ice cubes in a plastic bag, wrapped in a towel) and apply for 20 minutes every 1-2 hours the first day. Continue this 3-4 times a day until the pain and swelling goes away. 3) You may use acetaminophen (Tylenol) or ibuprofen (Motrin, Advil) to control pain, unless another pain medicine was prescribed. [ NOTE : If you have chronic liver or kidney disease or ever had a stomach ulcer or GI bleeding, talk with your doctor before using these medicines.] Follow Up with your doctor or this facility if you are not improving within the next THREE days. [NOTE: If X-rays were taken, they will be reviewed by a radiologist. You will be notified of any new findings that may affect your care.] Get Prompt Medical Attention if any of the following occur: -- Pain or swelling increases -- Injured arm or leg becomes cold, blue, numb or tingly -- Redness, warmth or drainage from the skin You have been given the following additional information: Contusion, Soft Tissue (Electronically signed by Tone Younger Dr. 02/16/2017 23:30)
--- NOTE | 2017-02-16 23:31 | ED MED RECONCILIATION SUMMARY ---
Patient: NIGEL DUBOIS Medication Reconciliation Report [facility] VisitID: [id number] [address] [place] [address] 26y, M Registration Date/Time: 02/15/2017 Weight: 113.3 kg Height/Length: (not available) BMI: 39.7 ALLERGIES: No Known Drug Allergy The patient's Home Medications are listed below: NONE. The source(s) of the original Home Medication information: Not obtained. The following Medications were given to the patient in the Emergency Department: Toradol [IM] IM 60 mg, administered: 02/15/2017 7:00:00 PM The following Medications were prescribed to the patient: Diclofenac 50 mg tablets: take 1 tablet orally every 8 hours as needed for pain or stiffness. Dispense thirty (30). No refill. -- Tone Younger Dr.
== END 2017-02-15 19:12 | disposition home or self-care (01) ==
LOC: ED SRH 17:49
DX: S00.93XA Contusion of unspecified part of head, initial encounter (principal); W22.8XXA Striking against or struck by other objects, initial encounter; Y93.9 Activity, unspecified; Y92.9 Unspecified place or not applicable; Y99.9 Unspecified external cause status; F17.210 Nicotine dependence, cigarettes, uncomplicated